=== PATIENT | male | born 1980 | race Caucasian/White ===

== ENCOUNTER 2024-02-12 23:36 | Emergency (ER) | payer OTHER ==
[~2024-02-12] VITALS: Ht 177.8 cm; Wt 97.1 kg
[2024-02-13] MEDS ORDERED: methylPREDNISolone sod succ 125 MG VIAL IM ONE (00:10)
[2024-02-13] MEDS ORDERED: PREDNISONE20 M1 PO (00:18)
== END 2024-02-13 00:34 | disposition home or self-care (01) ==
LOC: ED 23:36
DX: B34.9 Viral infection, unspecified (principal); Z20.822 Contact with and (suspected) exposure to COVID-19

== ENCOUNTER 2024-06-27 14:56 | Emergency (ER) | payer OTHER ==
[~2024-06-27] VITALS: Ht 177.8 cm; Wt 90.7 kg
[~2024-06-27 14:56] MED LIST: PREDNISONE20 M1 PO
[2024-06-27] MEDS ORDERED: Ciprofloxacin Hydrochloride 0.3% OPHTHLAMIC BOTTLE OPH ONE (15:50)
== END 2024-06-27 15:37 | disposition home or self-care (01) ==
LOC: ED 14:56
DX: H10.9 Unspecified conjunctivitis (principal)